=== PATIENT | female | born 1990 | race Caucasian/White ===

== ENCOUNTER 2017-10-30 15:51 | Emergency (ER) | payer SELFPAY ==
--- NOTE | 2017-10-30 16:14 | EDM.PDOC ---
ED HPI GENERAL MEDICAL PROBLEM - General Chief Complaint: Lower Extremity Injury/Pain Stated Complaint: LT KNEE HURTS Time Seen by Provider: 10/30/17 16:13 Source of Information: Reports: Patient - History of Present Illness INITIAL COMMENTS - FREE TEXT/NARRATIVE: HISTORY AND PHYSICAL: History of present illness: [Patient with known meniscus injury presents with left knee pain after arising from a couch, she was diagnosed with a meniscus tear 3 years prior and elected not to have surgery she presents with 5 out of 10 nonradiating knee pain No fever nausea vomiting chills sweats ] Review of systems: As per history of present illness and below otherwise all systems reviewed and negative. Past medical history: As per history of present illness and as reviewed below otherwise noncontributory. Surgical history: As per history of present illness and as reviewed below otherwise noncontributory. Social history: No reported history of drug or alcohol abuse. Family history: As per history of present illness and as reviewed below otherwise noncontributory. Physical exam: HEENT: Atraumatic, normocephalic, pupils reactive, negative for conjunctival pallor or scleral icterus, mucous membranes moist, throat clear, neck supple, nontender, trachea midline. Lungs: Clear to auscultation, breath sounds equal bilaterally, chest nontender. Heart: S1S2, regular, negative for clicks, rubs, or JVD. Abdomen: Soft, nondistended, nontender. Negative for masses or hepatosplenomegaly. Negative for costovertebral tenderness. Pelvis: Stable nontender. Genitourinary: Deferred. Rectal: Deferred. Extremities: Atraumatic, negative for cords or calf pain. Neurovascular unremarkable. Neuro: Awake, alert, oriented. Cranial nerves II through XII unremarkable. Cerebellum unremarkable. Motor and sensory unremarkable throughout. Exam nonfocal. Diagnostics: [Left knee 3v HCG Therapeutics: [Rest ice ibuprofen] Impression: [Left knee pain History of meniscus injury] Definitive disposition and diagnosis as appropriate pending reevaluation and review of above. Left Knee Pain Score (Numeric/FACES): 5 - Related Data Allergies Allergy/AdvReac Type Severity Reaction Status Date / Time amoxicillin Allergy Hives Verified 10/30/17 16:05 Penicillins Allergy Hives Verified 10/30/17 16:05 Home Meds: Home Meds . [No Known Home Meds] 10/30/17 [History] Past Medical History Cardiovascular History: Reports: Syncope Other Cardiovascular History: Hx of syncopal episodes Genitourinary History: Reports: UTI, Recurrent SPRING TESTER History: Reports: Polycystic Ovaries - Infectious Disease History Infectious Disease History: Reports: Chicken Pox, Measles Social & Family History - Family History Family Medical History: Noncontributory - Tobacco Use Smoking Status *Q: Current Every Day Smoker Years of Tobacco use: 13 Packs/Tins Daily: 0.5 - Caffeine Use Caffeine Use: Reports: Coffee, Energy Drinks, Soda - Recreational Drug Use Recreational Drug Use: No Review of Systems - Review of Systems Review Of Systems: See Below ED EXAM, GENERAL - Physical Exam Exam: See Below Course - Vital Signs Last Recorded V/S: Last Vital Signs Temp 97.5 F 10/30/17 16:02 Pulse 101 H 10/30/17 16:02 Resp 18 10/30/17 16:02 BP 139/91 H 10/30/17 16:02 Pulse Ox 97 10/30/17 16:02 - Orders/Labs/Meds Orders: Active Orders 24 hr Category Date Time Status Knee 3V Lt [CR] Stat Exams 10/30/17 16:13 Taken Labs: Laboratory Tests 10/30/17 Range/Units 16:30 Urine HCG, Qual NEGATIVE (NEGATIVE) Departure - Departure Time of Disposition: 17:28 Disposition: Home, Self-Care 01 Condition: Good Clinical Impression: Left knee pain - Discharge Information Referrals: PCP,None [Primary Care Provider] - Forms: ED Department Discharge Additional Instructions: Medication as prescribed Return if symptoms persist or worsen Follow-up with orthopedist, call phone number below to schedule appropriate follow-up [facility] [address], [address] [place] [address] my orthopedic The following information is given to patients seen in the emergency department who are being discharged to home. This information is to outline your options for follow-up care. We provide all patients seen in our emergency department with a follow-up referral. The need for follow-up, as well as the timing and circumstances, are variable depending upon the specifics of your emergency department visit. If you don't have a primary care physician on staff, we will provide you with a referral. We always advise you to contact your personal physician following an emergency department visit to inform them of the circumstance of the visit and for follow-up with them and/or the need for any referrals to a consulting specialist. The emergency department will also refer you to a specialist when appropriate. This referral assures that you have the opportunity for follow-up care with a specialist. All of these measure are taken in an effort to provide you with optimal care, which includes your follow-up. Under all circumstances we always encourage you to contact your private physician who remains a resource for coordinating your care. When calling for follow-up care, please make the office aware that this follow-up is from your recent emergency room visit. If for any reason you are refused follow-up, please contact the [facility] emergency department at and asked to speak to the emergency department charge nurse. - My Orders Last 24 Hours: My Active Orders 10/30/17 16:13 Knee 3V Lt [CR] Stat - Assessment/Plan Last 24 Hours: My Active Orders 10/30/17 16:13 Knee 3V Lt [CR] Stat
--- NOTE | 2017-10-31 13:55 | CR ---
EXAM DATE: 10/30/17 PATIENT'S AGE: 27 Patient: PRERNA FREDERICK Facility: [place], [place] Site . Site : 1990 Study: XRay Knee Left [id number]/[id number] 5:21:02 PM Ordering Physician: Misty Anderson Final Report: INDICATION: Sudden onset of stabbing pain after hearing a pop in her knee. COMPARISON: None available. FINDINGS: The left knee was examined with AP, lateral and sunrise views for a total of three views. There is no sign of fracture or dislocation. The medial and lateral compartments are normal in height. There is no sign of a joint effusion. No soft tissue abnormality is seen. IMPRESSION: NORMAL LEFT KNEE. Dictated by Kapil Bautista MD @ Oct 30 2017 5:37PM (Electronic Signature) Report Signed by Proxy. CARA
== END 2017-10-30 18:00 | disposition home or self-care (01) ==
LOC: MW.ED 15:51
DX: M25.562 Pain in left knee (principal); F17.210 Nicotine dependence, cigarettes, uncomplicated; Z88.1 Allergy status to other antibiotic agents; Z88.0 Allergy status to penicillin
CPT/HCPCS: 73562-26-LT; 73562-LT; 81025; 99283